=== PATIENT | female | born 1935 | race Caucasian/White ===

== ENCOUNTER 2022-03-02 05:20 | Day surgery (SDC) | payer MEDICARE, SELFPAY ==
[2022-03-02] VITALS (7 sets, daily range): BP systolic 128–176; BP diastolic 67–84; PULSE 60–62; RESP 14–16; TEMP 36–36.6; O2SAT 100; BMI 20.4
[2022-03-02] MEDS: Lactated Ringers 1,000 ML 15 ML IV (06:04)
--- NOTE | 2022-03-02 06:31 | PCM.HP.BLA ---
History and Physical Date of Admission: 03/02/22 86 F who presents to the office today for greasy stools. She has passed greasy, fatty stools x 20 yrs but the problems has worsened in past 2 yrs. No change when she had cholecystectomy in 2011. Recently thought she was just passing gas but she passed grease too. Stools tend to be loose, usually 1-2BM per day. Gets a feeling of a balloon in the rectum, then has a large greasy loose BM, and the balloon feeling resolves, that happens every 1-2 wks. Denies abd pain or cramping. No tenesmus. No mucus or blood. No melena or hematochezia. She has been taking an OTC white powder that has helped firm up the stools and decrease grease, doesn't know the name or ingredients. No heartburn or dysphagia. No pattern to the BMs, not related to eating or to particular foods. ROS Const Constitutional: Positive for weakness; No fatigue ENT ENT: No difficulty swallowing Gastro GI: Positive for change in bowel habits and diarrhea; No abdominal pain, belching, bloating, change in stool character, coffee ground emesis, constipation, cramping, heartburn, difficulty swallowing, feeling full early, excessive flatus, incontinent of stools, Vomiting blood/hematemesis, Blood in stool, loose stools, Black,tarry stools, nausea/dyspepsia, pain with swallowing, vomiting or other Musc Musculoskeletal: Positive for stiffness and Arthritis; No joint pain Skin Skin: No yellowing of the eye or itchy eyes Neuro Neurology: Positive for unsteady gait/balance and weakness Psych Psychiatric: No anxiety and No depression Endo Endocrine: Positive for increased thirst/drinking; No fatigue Aller/Imm Allergy/Immunologic: No itchy eyes Haider/Lymp Hematologic/Lymphatic: Positive for easy bruising; No easy bleeding Exam Const General: cooperative, healthy appearing, comfortable, well developed and well groomed Resp Effort & Inspection: normal respiratory effort Cardio Rate: regular rate Rhythm: regular rhythm GI Inspection: normal to inspection Palpation: soft, no hepatosplenomegaly and nontender Quality Reporting Tobacco Screening ([facility] 138) Smoking Status: Never smoker Assessment and Plan Assessment and Plan (1) Fatty stools: ?Status:?Acute ?Plan - 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 In the meantime she will try OTC pancreatic enzymes Pancreatin 1999. I have re-examined the patient. There are no clinical changes since date of exam.
--- NOTE | 2022-03-02 07:07 | OP.COLON_ITS ---
Patient Name: Aylin Fernandez Procedure Date: 03/02/2022 6:17 AM Date of : 1935 Age: 86 Procedure: Colonoscopy Indications: Clinically significant diarrhea of unexplained origin Providers: Philip Schilling DO Referring MD: Philip Schilling DO Medicines: Monitored Anesthesia Care Patient Profile: This is an 86 year old female. Refer to note in patient chart for documentation of history and physical. Last Colonoscopy: date unknown. Unable to locate last colonoscopy report. Complications: No immediate complications. Procedure: Pre-Anesthesia Assessment: - Prior to the procedure, a History and Physical was performed, and patient medications and allergies were reviewed. The patient is competent. The risks and benefits of the procedure and the sedation options and risks were discussed with the patient. All questions were answered and informed consent was obtained. Patient identification and proposed procedure were verified by the physician in the pre-procedure area. Mental Status Examination: alert and oriented. Airway Examination: normal oropharyngeal airway and neck mobility. Respiratory Examination: clear to auscultation. CV Examination: normal. Prophylactic Antibiotics: The patient does not require prophylactic antibiotics. Prior Anticoagulants: The patient has taken no previous anticoagulant or antiplatelet agents. ASA Grade Assessment: II - A patient with mild systemic disease. After reviewing the risks and benefits, the patient was deemed in satisfactory condition to undergo the procedure. The anesthesia plan was to use moderate sedation / analgesia (conscious sedation). Immediately prior to administration of medications, the patient was re-assessed for adequacy to receive sedatives. The heart rate, respiratory rate, oxygen saturations, blood pressure, adequacy of pulmonary ventilation, and response to care were monitored throughout the procedure. The physical status of the patient was re-assessed after the procedure. After I obtained informed consent, the scope was passed under direct vision. Throughout the procedure, the patient's blood pressure, pulse, and oxygen saturations were monitored continuously. The Colonoscope was introduced through the anus and advanced to the cecum, identified by appendiceal orifice and ileocecal valve. The colonoscopy was performed without difficulty. The patient tolerated the procedure well. The quality of the bowel preparation was 90 percent obscured. Scope In: 6:41:25 AM Scope Out: 6:58:16 AM Total Procedure Duration Time 0 hours 16 minutes 51 seconds Findings: The perianal and digital rectal examinations were normal. The recto-sigmoid colon, sigmoid colon, splenic flexure and transverse colon were significantly redundant. The descending colon was moderately tortuous. Copious quantities of liquid semi-liquid solid stool was found in the entire colon, precluding visualization. Lavage of the area was performed using greater than 500 mL of sterile water, resulting in incomplete clearance with continued poor visualization. Impression: - Redundant colon. - Tortuous colon. - Stool in the entire examined colon. - No specimens collected. Recommendation: - Discharge patient to home. - Resume previous diet. - Repeat colonoscopy because the bowel preparation was poor. - Continue present medications. Procedure Code(s): --- Professional --- 34637, Colonoscopy, flexible; diagnostic, including collection of specimen(s) by brushing or washing, when performed (separate procedure) CPT copyright 2017 [employer]. All rights reserved. The codes documented in this report are preliminary and upon ethnographic materials conservator review may be revised to meet current compliance requirements. Philip Schilling DO 03/02/2022 7:06:36 AM This report has been signed electronically. Number of Addenda: 1 Note Initiated On: 03/02/2022 6:17 AM Addendum Number: 1 Addendum Date: 04/28/2022 6:22:22 AM MAC was used as sedation for this procedure. Philip Schilling DO 04/28/2022 6:22:26 AM This report has been signed electronically.
--- NOTE | 2022-03-02 07:07 | OP.CCLET_ITS ---
04/28/2022 Joe Watt Re : Colonoscopy procedure for Aylin Fernandez Dear Shukri This procedure was performed on Wednesday, March 02, 2022. My impressions and recommendations are as follows: Impressions : - Redundant colon. - Tortuous colon. - Stool in the entire examined colon. - No specimens collected. Recommendations : - Discharge patient to home. - Resume previous diet. - Repeat colonoscopy because the bowel preparation was poor. - Continue present medications. My findings are described in the full procedure note, which is enclosed. If I can be of further assistance, please feel free to contact me at . Sincerely, Philip Schilling, 03/02/2022 7:06:36 AM This report has been signed electronically.
== END 2022-03-02 07:56 | disposition home or self-care (01) ==
LOC: EN 05:23 → AC 05:28
PROVIDERS: PCP Internal Medicine; Referring Provider Internal Medicine Gastroenterology; Visit Provider Internal Medicine Gastroenterology
PROC: 0DJD8ZZ Inspection of Lower Intestinal Tract, Via Natural or Artificial Opening Endoscopic (ICD-10-PCS; CPT 45378; principal; 2022-03-02 06:25)
DX: Q43.8 Other specified congenital malformations of intestine (principal); I48.91 Unspecified atrial fibrillation; R19.7 Diarrhea, unspecified; Z90.49 Acquired absence of other specified parts of digestive tract; R19.4 Change in bowel habit; M19.90 Unspecified osteoarthritis, unspecified site; Z79.01 Long term (current) use of anticoagulants; Z79.899 Other long term (current) drug therapy; Z95.0 Presence of cardiac pacemaker
CPT/HCPCS: 45378; J7120; J2405

== ENCOUNTER 2022-03-03 10:35 | Day surgery (SDC) | payer MEDICARE, SELFPAY ==
[2022-03-03] VITALS (7 sets, daily range): BP systolic 129–159; BP diastolic 68–76; PULSE 59–62; RESP 16; TEMP 35.9–36.4; O2SAT 99–100; BMI 19.2
[2022-03-03] MEDS: Lactated Ringers 1,000 ML 15 ML IV (10:50)
--- NOTE | 2022-03-03 11:54 | PCM.HP.BLA ---
History and Physical Date of Admission: 03/03/22 86 F who presents to the office today for greasy stools. She has passed greasy, fatty stools x 20 yrs but the problems has worsened in past 2 yrs. No change when she had cholecystectomy in 2011. Recently thought she was just passing gas but she passed grease too. Stools tend to be loose, usually 1-2BM per day. Gets a feeling of a balloon in the rectum, then has a large greasy loose BM, and the balloon feeling resolves, that happens every 1-2 wks. Denies abd pain or cramping. No tenesmus. No mucus or blood. No melena or hematochezia. She has been taking an OTC white powder that has helped firm up the stools and decrease grease, doesn't know the name or ingredients. No heartburn or dysphagia. No pattern to the BMs, not related to eating or to particular foods. ROS Const Constitutional: Positive for weakness; No fatigue ENT ENT: No difficulty swallowing Gastro GI: Positive for change in bowel habits and diarrhea; No abdominal pain, belching, bloating, change in stool character, coffee ground emesis, constipation, cramping, heartburn, difficulty swallowing, feeling full early, excessive flatus, incontinent of stools, Vomiting blood/hematemesis, Blood in stool, loose stools, Black,tarry stools, nausea/dyspepsia, pain with swallowing, vomiting or other Musc Musculoskeletal: Positive for stiffness and Arthritis; No joint pain Skin Skin: No yellowing of the eye or itchy eyes Neuro Neurology: Positive for unsteady gait/balance and weakness Psych Psychiatric: No anxiety and No depression Endo Endocrine: Positive for increased thirst/drinking; No fatigue Aller/Imm Allergy/Immunologic: No itchy eyes Haider/Lymp Hematologic/Lymphatic: Positive for easy bruising; No easy bleeding Exam Const General: cooperative, healthy appearing, comfortable, well developed and well groomed Resp Effort & Inspection: normal respiratory effort Cardio Rate: regular rate Rhythm: regular rhythm GI Inspection: normal to inspection Palpation: soft, no hepatosplenomegaly and nontender Quality Reporting Tobacco Screening ([facility] 138) Smoking Status: Never smoker Assessment and Plan Assessment and Plan (1) Fatty stools: ?Status:?Acute ?Plan - Abril Trinidad 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 I have re-examined the patient. There are no clinical changes since date of exam.
--- NOTE | 2022-03-03 12:00 | COLBX_PTH ---
PATIENT: CASI VILLALOBOS LOC: [facility] U#:[id number] AGE/SX: 86/F ROOM: RE03/03/[address]: Dr. Philip Schilling DO : 1935 BED: DIS: 03/03/2022 SPEC #: [id number] RECD: 03/03/22 14:42 STATUS: MICHEL EMELIA #: [id number] ESTEBAN: 03/03/22 12:[address]: Philip Schilling DEPT: SURGICAL PATHOLOGY RECD BY: Tete Gorman ENTERED: 03/04/22 08:13 SP TYPE: COLON BX YESI DR: Dr. Joe Watt MD Tissues: A - Cecum, NOS B - Ascending colon C - Sigmoid colon biopsy Procedures: Surgery Specimen Level IV HEADER OPERATION: Colonoscopy with biopsies (MAC) PRE-OP DIAGNOSIS: Fatty stools TISSUE SUBMITTED: A ? Cecal ulcer, B ? Ascending colon biopsy ? colitis, C ? Sigmoid ulcer MICROSCOPIC DIAGNOSIS A ? Cecal ulcer, biopsy: Fragments of colonic mucosa, no pathologic diagnosis. B ? Ascending colon, biopsy: Fragments of colonic mucosa, no pathologic diagnosis. C ? Sigmoid ulcer, biopsy: Fragments of colonic mucosa with focal minimal acute inflammation. MAODNNA/ 03/07/2022 MICROSCOPIC DESCRIPTION Slides are reviewed. GROSS DESCRIPTION A - Received in fixative is one container labeled with the patient's name and designated cecal ulcer. The specimen consists of multiple irregular fragments of light durand soft tissue that in aggregate measure 1.5 x 0.3 x 0.1 cm. The specimen is totally submitted in one cassette. B - Received in fixative is one container labeled with the patient's name and designated ascending colon biopsy - colitis. The specimen consists of one irregular fragment of light durand soft tissue that measures 0.7 x 0.2 x 0.1 cm. The specimen is totally submitted in one cassette. C - Received in fixative is one container labeled with the patient's name and designated sigmoid ulcer. The specimen consists of two irregular fragments of light durand soft tissue that in aggregate measure 0.6 x 0.3 x 0.1 cm. The specimen is totally submitted in one cassette. / MADONNA:sade 03/04/2022 TC:2 CPT: 29446 x3
--- NOTE | 2022-03-03 12:49 | OP.COLON_ITS ---
Patient Name: Aylin Fernandez Procedure Date: 03/03/2022 12:08 PM Date of : 1935 Age: 86 Procedure: Colonoscopy Indications: Clinically significant diarrhea of unexplained origin Providers: Philip Schilling DO Medicines: Monitored Anesthesia Care Patient Profile: This is an 86 year old female. Refer to note in patient chart for documentation of history and physical. Last Colonoscopy: 1 week ago. Complications: No immediate complications. Procedure: Pre-Anesthesia Assessment: - Prior to the procedure, a History and Physical was performed, and patient medications and allergies were reviewed. The patient is competent. The risks and benefits of the procedure and the sedation options and risks were discussed with the patient. All questions were answered and informed consent was obtained. Patient identification and proposed procedure were verified by the physician in the pre-procedure area. Mental Status Examination: alert and oriented. Airway Examination: normal oropharyngeal airway and neck mobility. Respiratory Examination: clear to auscultation. CV Examination: normal. Prophylactic Antibiotics: The patient does not require prophylactic antibiotics. Prior Anticoagulants: The patient has taken no previous anticoagulant or antiplatelet agents. ASA Grade Assessment: II - A patient with mild systemic disease. After reviewing the risks and benefits, the patient was deemed in satisfactory condition to undergo the procedure. The anesthesia plan was to use moderate sedation / analgesia (conscious sedation). Immediately prior to administration of medications, the patient was re-assessed for adequacy to receive sedatives. The heart rate, respiratory rate, oxygen saturations, blood pressure, adequacy of pulmonary ventilation, and response to care were monitored throughout the procedure. The physical status of the patient was re-assessed after the procedure. After I obtained informed consent, the scope was passed under direct vision. Throughout the procedure, the patient's blood pressure, pulse, and oxygen saturations were monitored continuously. The colonoscope was introduced through the anus and advanced to the terminal ileum. The colonoscopy was performed without difficulty. The patient tolerated the procedure well. The quality of the bowel preparation was good. Scope In: 12:15:57 PM Scope Withdrawal Time 0 hours 12 minutes 59 seconds Scope Out: 12:39:54 PM Total Procedure Duration Time 0 hours 23 minutes 57 seconds Findings: A few three mm ulcers were found in the sigmoid colon, in the ascending colon and in the cecum. No bleeding was present. Biopsies were taken with a cold forceps for histology. Verification of patient identification for the specimen was done. Estimated blood loss was minimal. A benign-appearing, intrinsic severe stenosis measuring 2 cm (in length) was found in the sigmoid colon and was traversed. The terminal ileum appeared normal. The perianal and digital rectal examinations were normal. Multiple small and large-mouthed diverticula were found in the recto-sigmoid colon, sigmoid colon, splenic flexure and hepatic flexure. Impression: - A few ulcers in the sigmoid colon, in the ascending colon and in the cecum. Biopsied. 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 - The examined portion of the ileum was normal. Recommendation: - Repeat colonoscopy in 5 years for surveillance. - Return to GI office. - Continue present medications. Procedure Code(s): --- Professional --- 15198, Colonoscopy, flexible; with biopsy, single or multiple CPT copyright 2017 [employer]. All rights reserved. The codes documented in this report are preliminary and upon certified coder review may be revised to meet current compliance requirements. Philip Schilling DO 03/03/2022 12:48:49 PM This report has been signed electronically. Number of Addenda: 1 Note Initiated On: 03/03/2022 12:08 PM Addendum Number: 1 Addendum Date: 04/28/2022 6:22:12 AM MAC was used as sedation for this procedure. Philip Schilling DO 04/28/2022 6:22:16 AM This report has been signed electronically.
--- NOTE | 2022-03-03 12:49 | OP.CCLET_ITS ---
04/28/2022 Joe Watt Re : Colonoscopy procedure for Aylin Fernandez Dear Shukri This procedure was performed on February. My impressions and recommendations are as follows: Impressions : - A few ulcers in the sigmoid colon, in the ascending colon and in the cecum. Biopsied. 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 - The examined portion of the ileum was normal. Recommendations : - Repeat colonoscopy in 5 years for surveillance. - Return to GI office. - Continue present medications. My findings are described in the full procedure note, which is enclosed. If I can be of further assistance, please feel free to contact me at . Sincerely, Philip Schilling, 03/03/2022 12:48:49 PM This report has been signed electronically.
== END 2022-03-03 13:49 | disposition home or self-care (01) ==
LOC: EN 10:36 → AC 10:38
PROVIDERS: PCP Internal Medicine; Referring Provider Internal Medicine; Visit Provider Internal Medicine Gastroenterology
PROC: 0DJD8ZZ Inspection of Lower Intestinal Tract, Via Natural or Artificial Opening Endoscopic (ICD-10-PCS; CPT 45378; principal; 2022-03-03 11:55)
DX: K63.3 Ulcer of intestine (principal); I48.91 Unspecified atrial fibrillation; K56.699 Other intestinal obstruction unspecified as to partial versus complete obstruction; K57.30 Diverticulosis of large intestine without perforation or abscess without bleeding; R19.7 Diarrhea, unspecified; Z79.01 Long term (current) use of anticoagulants; Z79.899 Other long term (current) drug therapy; Z95.0 Presence of cardiac pacemaker
CPT/HCPCS: 45380; 88305; J7120; J2405